=== PATIENT | male | born 1995 | race Caucasian/White ===

== ENCOUNTER 2023-04-03 06:34 | Emergency (ER) | payer MEDICAID ==
[~2023-04-03] VITALS: Ht 185.4 cm; Wt 54.3 kg
[~2023-04-03 06:34] MED LIST: PROAIR
[2023-04-03 07:25] VITALS: BP 121/67; PULSE 71; RESP 16; TEMP 97.8; O2SAT 97
[2023-04-03] MEDS ORDERED: METH4PAK PO (07:34)
[2023-04-03] MEDS ORDERED: AZIT-81 PO (07:34)
[2023-04-03] MEDS ORDERED: PROM1SOL4 PO (07:35)
== END 2023-04-03 07:48 | disposition home or self-care (01) ==
LOC: ER 06:34
DX: J20.9 Acute bronchitis, unspecified (principal); R09.81 Nasal congestion; R07.89 Other chest pain
CPT/HCPCS: 71045